=== PATIENT | female | born 1955 ===

== ENCOUNTER 2017-05-12 13:10 | Emergency (ER) | payer OTHER ==
[2017-05-12 13:44] VITALS: BP 124/74; RESP 18; TEMP 97.8
[2017-05-12 16:22] VITALS: PULSE 70; O2SAT 100
--- NOTE | 2017-05-12 18:14 | RAD ---
PROCEDURE: Right Knee Radiographs. HISTORY: Rule out fracture COMPARISON: None. FINDINGS: BONES: No definitive evidence of acute displaced fracture nor dislocation. There is a small rounded density adjacent to and slightly overlying the medial margin of the tibial plateau that probably represents overlying soft tissue artifact. Additional oblique views could be performed to confirm and exclude a tiny avulsion injury if clinically indicated. JOINTS: Normal. No osteoarthritis. JOINT EFFUSION: Tiny suprapatellar joint effusion felt to be present. OTHER FINDINGS: None. IMPRESSION: No definitive evidence of acute displaced fracture or dislocation. Small rounded density adjacent to and overlapping the medial margin tibial plateau that probably represents overlying soft tissue artifact. Additional oblique views could be performed to confirm and exclude the possibility of a tiny avulsion injury if clinically indicated. Findings discussed with Dr. Hurtado at approximately 6:05 p.m. with written down and read back verification.
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
== END 2017-05-12 17:25 | disposition home or self-care (01) ==
LOC: C.ER 13:10
DX: S83.91XD Sprain of unspecified site of right knee, subsequent encounter (principal); V79.5 Passenger on bus injured in collision with other and unspecified motor vehicles in traffic accident